=== PATIENT | female | born 1940 | race Caucasian/White ===

== ENCOUNTER 2020-09-07 16:00 | Inpatient (IN) | payer MEDICARE, BC ==
[2020-09-07 17:08] LABS: #Eosinphils 0.2 10x3/uL (0.0-0.5); #Neutrophils 6.4 10x3/uL (1.5-8.4); %Basophils 0.5 % (0.0-2.0); %Eosinophils 1.8 % (0.0-6.0); %Lymphocytes 11.6 % (18.0-47.0); %Monocytes 11.5 % (0.0-10.0); %Neutrophils 74.4 % (40.0-75.0); Hemoglobin 11.4 g/dL (12.0-15.5); Mean Corpuscular HGB CONC 31.6 g/dL (32.0-36.0); Mean Corpuscular Hemoglobin 30.7 pg (27.0-33.0); Mean Corpuscular Volume 97.3 fl (81.6-98.3); Mean Platelet Volume 10.3 fl (7.4-10.4); Platelet Count 241 10x3/uL (150-450); RBC Distribution Width 15.3 % (11.5-14.5); Red Blood Cell (RBC) Count 3.71 10x6/uL (3.90-5.03); White Blood Cell (WBC) Count 8.5 10x3/uL (3.5-10.5)
[2020-09-07 17:32] LABS: ALT (SGPT) 8 U/L (8-55); AST (SGOT) 17 U/L (5-34); Albumin 3.6 g/dL (3.4-4.8); Alkaline Phosphatase 105 U/L (40-110); Anion Gap 13 mmol/L (10-20); BUN (Urea Nitrogen) 36 mg/dL (9.8-20.1); Bilirubin, Total 0.3 mg/dL (0.2-1.2); Calc. Creatinine Clearance 0 mL/min (70-130); Calcium 9.3 mg/dL (7.8-10.44); Carbon Dioxide 30 mmol/L (23-31); Chloride 103 mmol/L (98-107); Globulin 3.4 g/dL (2.4-3.5); Glucose 95 mg/dL (83-110); Magnesium 2.5 mg/dL (1.6-2.6); Potassium 4.6 mmol/L (3.5-5.1); Sodium 141 mmol/L (136-145)
[2020-09-07 17:56] LABS: CKMB 3.4 ng/mL (0-6.6)
[2020-09-07] MEDS ORDERED: Furosemide 40 MG/4 ML VIAL ONE (18:07)
[2020-09-07] MEDS ORDERED: Ondansetron ODT 4 MG TAB PO PRN (18:32)
[2020-09-07] MEDS ORDERED: Acetaminophen 325 MG TAB PO PRN (18:32)
[2020-09-07] MEDS: Atenolol 25 MG TAB PO SCH (22:00)
[2020-09-08 05:11] LABS: #Basophils 0.1 10x3/uL (0.0-0.2); #Eosinphils 0.2 10x3/uL (0.0-0.5); #Monocytes 0.9 10x3/uL (0.0-1.1); #Neutrophils 7.4 10x3/uL (1.5-8.4); %Basophils 0.5 % (0.0-2.0); %Eosinophils 2.4 % (0.0-6.0); %Monocytes 9.1 % (0.0-10.0); %Neutrophils 78.8 % (40.0-75.0); Hemoglobin 12.1 g/dL (12.0-15.5); Mean Corpuscular HGB CONC 31.5 g/dL (32.0-36.0); Mean Corpuscular Hemoglobin 30.4 pg (27.0-33.0); Mean Corpuscular Volume 96.5 fl (81.6-98.3); Platelet Count 238 10x3/uL (150-450); Red Blood Cell (RBC) Count 3.98 10x6/uL (3.90-5.03); White Blood Cell (WBC) Count 9.4 10x3/uL (3.5-10.5)
[2020-09-08 05:23] LABS: Anion Gap 15 mmol/L (10-20); BUN (Urea Nitrogen) 31 mg/dL (9.8-20.1); Calc. Creatinine Clearance 25 mL/min (70-130); Calcium 9.2 mg/dL (7.8-10.44); Carbon Dioxide 28 mmol/L (23-31); Chloride 102 mmol/L (98-107); Glucose 95 mg/dL (83-110); Potassium 4.3 mmol/L (3.5-5.1); Sodium 141 mmol/L (136-145)
[2020-09-08] MEDS: Furosemide 40 MG/4 ML VIAL SLOW IVP SCH ×2 (05:32→14:48)
[2020-09-08 07:17] VITALS: BMI 16.5
[2020-09-08] MEDS: Enoxaparin Sodium 30 MG/0.3 ML SYRINGE SC SCH (08:14)
[2020-09-08] MEDS: Lisinopril 10 MG TAB PO SCH (08:14)
[2020-09-08] MEDS: Atenolol 25 MG TAB PO SCH ×2 (08:14→22:00)
[2020-09-08] MEDS: Aspirin 81 mg Enteric Coated Tablet PO SCH (08:15)
[2020-09-08] MEDS: traMADol HCl 50 MG TAB PO PRN (22:17)
[2020-09-09 04:54] LABS: #Basophils 0.1 10x3/uL (0.0-0.2); #Eosinphils 0.3 10x3/uL (0.0-0.5); #Monocytes 0.9 10x3/uL (0.0-1.1); #Neutrophils 5.8 10x3/uL (1.5-8.4); %Basophils 0.6 % (0.0-2.0); %Eosinophils 3.2 % (0.0-6.0); %Lymphocytes 14.5 % (18.0-47.0); %Monocytes 10.6 % (0.0-10.0); %Neutrophils 70.9 % (40.0-75.0); Hemoglobin 12.3 g/dL (12.0-15.5); Mean Corpuscular HGB CONC 31.2 g/dL (32.0-36.0); Mean Corpuscular Hemoglobin 30.2 pg (27.0-33.0); Mean Corpuscular Volume 96.8 fl (81.6-98.3); Mean Platelet Volume 10.1 fl (7.4-10.4); Platelet Count 226 10x3/uL (150-450); RBC Distribution Width 14.8 % (11.5-14.5); Red Blood Cell (RBC) Count 4.07 10x6/uL (3.90-5.03); White Blood Cell (WBC) Count 8.2 10x3/uL (3.5-10.5)
[2020-09-09 05:11] LABS: ALT (SGPT) 9 U/L (8-55); AST (SGOT) 15 U/L (5-34); Albumin 3.2 g/dL (3.4-4.8); Alkaline Phosphatase 96 U/L (40-110); Anion Gap 14 mmol/L (10-20); BUN (Urea Nitrogen) 32 mg/dL (9.8-20.1); Bilirubin, Total 0.4 mg/dL (0.2-1.2); Calc. Creatinine Clearance 24 mL/min (70-130); Carbon Dioxide 29 mmol/L (23-31); Chloride 102 mmol/L (98-107); Globulin 3.4 g/dL (2.4-3.5); Glucose 96 mg/dL (83-110); Magnesium 2.4 mg/dL (1.6-2.6); Potassium 3.9 mmol/L (3.5-5.1); Protein, Total 6.6 g/dL (5.8-8.1); Sodium 141 mmol/L (136-145)
[2020-09-09] MEDS: Furosemide 40 MG/4 ML VIAL SLOW IVP SCH ×2 (06:19→13:55)
[2020-09-09] MEDS: Atenolol 25 MG TAB PO SCH ×2 (08:19→21:42)
[2020-09-09] MEDS: Lisinopril 10 MG TAB PO SCH (08:20)
[2020-09-09] MEDS: Enoxaparin Sodium 30 MG/0.3 ML SYRINGE SC SCH (08:20)
[2020-09-09] MEDS: Aspirin 81 mg Enteric Coated Tablet PO SCH (08:20)
[2020-09-09] MEDS ORDERED: Communication Order-Pharmacy FS SCH (19:45)
[2020-09-09] MEDS: traMADol HCl 50 MG TAB PO PRN (22:06)
[2020-09-10] MEDS: Furosemide 40 MG/4 ML VIAL SLOW IVP SCH ×2 (05:27→13:31)
[2020-09-10 05:51] LABS: #Eosinphils 0.3 10x3/uL (0.0-0.5); #Monocytes 0.8 10x3/uL (0.0-1.1); #Neutrophils 5.3 10x3/uL (1.5-8.4); %Basophils 0.5 % (0.0-2.0); %Eosinophils 3.3 % (0.0-6.0); %Lymphocytes 14.3 % (18.0-47.0); %Monocytes 11.2 % (0.0-10.0); %Neutrophils 70.4 % (40.0-75.0); Mean Corpuscular HGB CONC 31.7 g/dL (32.0-36.0); Mean Corpuscular Hemoglobin 30.9 pg (27.0-33.0); Mean Corpuscular Volume 97.4 fl (81.6-98.3); Mean Platelet Volume 10.1 fl (7.4-10.4); Platelet Count 244 10x3/uL (150-450); RBC Distribution Width 14.8 % (11.5-14.5); Red Blood Cell (RBC) Count 4.21 10x6/uL (3.90-5.03); White Blood Cell (WBC) Count 7.5 10x3/uL (3.5-10.5)
[2020-09-10 05:53] LABS: ALT (SGPT) 9 U/L (8-55); AST (SGOT) 18 U/L (5-34); Albumin 3.4 g/dL (3.4-4.8); Alkaline Phosphatase 97 U/L (40-110); Anion Gap 11 mmol/L (10-20); BUN (Urea Nitrogen) 30 mg/dL (9.8-20.1); Bilirubin, Total 0.3 mg/dL (0.2-1.2); Calc. Creatinine Clearance 27 mL/min (70-130); Calcium 9.2 mg/dL (7.8-10.44); Carbon Dioxide 34 mmol/L (23-31); Chloride 100 mmol/L (98-107); Globulin 3.5 g/dL (2.4-3.5); Glucose 88 mg/dL (83-110); Magnesium 2.5 mg/dL (1.6-2.6); Potassium 3.8 mmol/L (3.5-5.1); Protein, Total 6.9 g/dL (5.8-8.1); Sodium 141 mmol/L (136-145)
[2020-09-10] MEDS: Aspirin 81 mg Enteric Coated Tablet PO SCH (08:57)
[2020-09-10] MEDS: Lisinopril 10 MG TAB PO SCH (08:57)
[2020-09-10] MEDS: Atenolol 25 MG TAB PO SCH ×2 (08:57→20:56)
[2020-09-10] MEDS ORDERED: Nitroglycerin 50 MG/250 ML BOT 0 ML ONE (12:36)
[2020-09-10] MEDS ORDERED: Heparin 10,000 UNITS/ 10 ML VIAL ONE (12:37)
[2020-09-10] MEDS ORDERED: Adenosine 6 MG/2 ML VIAL ONE (12:37)
[2020-09-10] MEDS ORDERED: Verapamil 5 MG/2 ML VIAL ONE (12:37)
[2020-09-10] MEDS ORDERED: Bivalirudin 250 MG VIAL ONE (12:38)
[2020-09-10] MEDS ORDERED: Lidocaine 1% (PF) 30 ML VIAL ONE (12:39)
[2020-09-10] MEDS ORDERED: Midazolam HCl 2 mg/2 ml Vial ONE (12:42)
[2020-09-10] MEDS ORDERED: Fentanyl 100 MCG/2 ML VIAL ONE (12:42)
[2020-09-11 05:15] LABS: #Eosinphils 0.2 10x3/uL (0.0-0.5); #Monocytes 0.9 10x3/uL (0.0-1.1); #Neutrophils 5.7 10x3/uL (1.5-8.4); %Basophils 0.5 % (0.0-2.0); %Eosinophils 2.2 % (0.0-6.0); %Lymphocytes 13.6 % (18.0-47.0); %Monocytes 11.6 % (0.0-10.0); %Neutrophils 71.8 % (40.0-75.0); Hemoglobin 11.2 g/dL (12.0-15.5); Mean Corpuscular HGB CONC 31.4 g/dL (32.0-36.0); Mean Corpuscular Hemoglobin 30.4 pg (27.0-33.0); Mean Corpuscular Volume 96.7 fl (81.6-98.3); Platelet Count 219 10x3/uL (150-450); RBC Distribution Width 14.7 % (11.5-14.5); Red Blood Cell (RBC) Count 3.69 10x6/uL (3.90-5.03); White Blood Cell (WBC) Count 7.9 10x3/uL (3.5-10.5)
[2020-09-11 05:19] LABS: Anion Gap 11 mmol/L (10-20); BUN (Urea Nitrogen) 28 mg/dL (9.8-20.1); Calc. Creatinine Clearance 31 mL/min (70-130); Calcium 8.7 mg/dL (7.8-10.44); Carbon Dioxide 29 mmol/L (23-31); Chloride 102 mmol/L (98-107); Glucose 75 mg/dL (83-110); Magnesium 2.4 mg/dL (1.6-2.6); Potassium 4.1 mmol/L (3.5-5.1); Sodium 138 mmol/L (136-145)
[2020-09-11] MEDS: Furosemide 40 MG/4 ML VIAL SLOW IVP SCH ×2 (05:29→14:09)
[2020-09-11] MEDS: Lisinopril 10 MG TAB PO SCH (08:09)
[2020-09-11] MEDS: Atenolol 25 MG TAB PO SCH ×2 (08:10→21:27)
[2020-09-11] MEDS: Aspirin 81 mg Enteric Coated Tablet PO SCH (08:47)
[2020-09-11] MEDS ORDERED: traMADol HCl 50 MG TAB ONE (21:22)
[2020-09-12] MEDS: traMADol HCl 50 MG TAB PO PRN (03:06)
[2020-09-12] MEDS: Atenolol 25 MG TAB PO SCH (08:43)
[2020-09-12] MEDS: Aspirin 81 mg Enteric Coated Tablet PO SCH (08:43)
[2020-09-12] MEDS: Furosemide 40 MG TAB PO SCH ×2 (08:44→14:04)
[2020-09-12] MEDS: Lisinopril 10 MG TAB PO SCH (08:44)
[2020-09-12 12:33] VITALS: BP 115/65; TEMP 97.7
== END 2020-09-12 14:28 | DRG 286 ==
LOC: CSHERS 16:00 → CSHTELE 19:35
PROVIDERS: ADMIT Internal Medicine; ATTEND Internal Medicine
PROC: 4A023N7 Measurement of Cardiac Sampling and Pressure, Left Heart, Percutaneous Approach (ICD-10-PCS; principal; 2020-09-10)
PROC: B2111ZZ Fluoroscopy of Multiple Coronary Arteries using Low Osmolar Contrast (ICD-10-PCS; 2020-09-10)
PROC: B2161ZZ Fluoroscopy of Right and Left Heart using Low Osmolar Contrast (ICD-10-PCS; 2020-09-10)
DX: I13.0 Hypertensive heart and chronic kidney disease with heart failure and stage 1 through stage 4 chronic kidney disease, or unspecified chronic kidney disease (principal); J96.01 Acute respiratory failure with hypoxia; I50.43 Acute on chronic combined systolic (congestive) and diastolic (congestive) heart failure; Z20.822 Contact with and (suspected) exposure to COVID-19; I35.0 Nonrheumatic aortic (valve) stenosis; I42.9 Cardiomyopathy, unspecified; N18.30 Chronic kidney disease, stage 3 unspecified; I25.10 Atherosclerotic heart disease of native coronary artery without angina pectoris; E78.5 Hyperlipidemia, unspecified; I73.9 Peripheral vascular disease, unspecified; K86.89 Other specified diseases of pancreas; R10.9 Unspecified abdominal pain; Z79.82 Long term (current) use of aspirin; Z79.891 Long term (current) use of opiate analgesic; Z79.899 Other long term (current) drug therapy; Z95.1 Presence of aortocoronary bypass graft; Z85.3 Personal history of malignant neoplasm of breast; Z90.49 Acquired absence of other specified parts of digestive tract; Z98.62 Peripheral vascular angioplasty status; Z82.49 Family history of ischemic heart disease and other diseases of the circulatory system; M19.90 Unspecified osteoarthritis, unspecified site; R93.89 Abnormal findings on diagnostic imaging of other specified body structures; R63.4 Abnormal weight loss; K76.89 Other specified diseases of liver; N28.1 Cyst of kidney, acquired
CPT/HCPCS: 36415; 36416; 71045; 74183; 74240; 74250; 75605; 80048; 80053; 82378; 82553; 83735; 83880; 84484; 85025; 86301; 93005; 93459; 94760; 96374; 99152; 99153; C1760; J0153; J0583; J1644; J1650; J1940; J2001; J2250; J3010

== ENCOUNTER 2020-09-17 20:01 | Inpatient (IN) | payer MEDICARE, BC ==
[2020-09-17 20:25] LABS: #Eosinphils 0.2 10x3/uL (0.0-0.5); #Monocytes 0.9 10x3/uL (0.0-1.1); #Neutrophils 5.7 10x3/uL (1.5-8.4); %Basophils 0.5 % (0.0-2.0); %Eosinophils 2.5 % (0.0-6.0); %Lymphocytes 10.8 % (18.0-47.0); %Monocytes 11.9 % (0.0-10.0); Hemoglobin 11.1 g/dL (12.0-15.5); Mean Corpuscular HGB CONC 32.3 g/dL (32.0-36.0); Mean Corpuscular Hemoglobin 30.3 pg (27.0-33.0); Mean Platelet Volume 10.2 fl (7.4-10.4); Platelet Count 242 10x3/uL (150-450); Red Blood Cell (RBC) Count 3.66 10x6/uL (3.90-5.03); White Blood Cell (WBC) Count 7.8 10x3/uL (3.5-10.5)
[2020-09-17 20:41] LABS: ALT (SGPT) 9 U/L (8-55); AST (SGOT) 19 U/L (5-34); Albumin 3.3 g/dL (3.4-4.8); Alkaline Phosphatase 106 U/L (40-110); Anion Gap 16 mmol/L (10-20); BUN (Urea Nitrogen) 27 mg/dL (9.8-20.1); Bilirubin, Total 0.2 mg/dL (0.2-1.2); Calc. Creatinine Clearance 0 mL/min (70-130); Calcium 8.6 mg/dL (7.8-10.44); Carbon Dioxide 26 mmol/L (23-31); Chloride 102 mmol/L (98-107); Glucose 115 mg/dL (83-110); Potassium 4.5 mmol/L (3.5-5.1); Protein, Total 6.3 g/dL (5.8-8.1); Sodium 139 mmol/L (136-145)
[2020-09-17] MEDS ORDERED: Furosemide 40 MG/4 ML VIAL ONE (21:38)
[2020-09-17] MEDS ORDERED: hydrALAZINE 10 MG TAB PO SCH (23:30)
[2020-09-17 23:54] LABS: Troponin I 0.121 ng/mL (< 0.028)
[2020-09-18 05:49] LABS: #Eosinphils 0.2 10x3/uL (0.0-0.5); #Monocytes 0.8 10x3/uL (0.0-1.1); #Neutrophils 5.3 10x3/uL (1.5-8.4); %Basophils 0.3 % (0.0-2.0); %Eosinophils 2.8 % (0.0-6.0); %Lymphocytes 11.1 % (18.0-47.0); %Monocytes 11.4 % (0.0-10.0); %Neutrophils 74.1 % (40.0-75.0); Hemoglobin 11.1 g/dL (12.0-15.5); Mean Corpuscular HGB CONC 32.6 g/dL (32.0-36.0); Mean Corpuscular Hemoglobin 30.5 pg (27.0-33.0); Mean Corpuscular Volume 93.7 fl (81.6-98.3); Mean Platelet Volume 9.8 fl (7.4-10.4); Platelet Count 217 10x3/uL (150-450); RBC Distribution Width 14.8 % (11.5-14.5); Red Blood Cell (RBC) Count 3.64 10x6/uL (3.90-5.03); White Blood Cell (WBC) Count 7.2 10x3/uL (3.5-10.5)
[2020-09-18 05:55] LABS: Anion Gap 14 mmol/L (10-20); BUN (Urea Nitrogen) 26 mg/dL (9.8-20.1); Calc. Creatinine Clearance 31 mL/min (70-130); Calcium 9.1 mg/dL (7.8-10.44); Carbon Dioxide 28 mmol/L (23-31); Chloride 102 mmol/L (98-107); Glucose 85 mg/dL (83-110); Potassium 4.3 mmol/L (3.5-5.1); Sodium 140 mmol/L (136-145)
[2020-09-18 05:57] LABS: Troponin I 0.113 ng/mL (< 0.028)
[2020-09-18] MEDS: traMADol HCl 50 MG TAB PO PRN ×2 (06:01→20:27)
[2020-09-18] MEDS: Furosemide 40 MG/4 ML VIAL SLOW IVP SCH ×2 (06:57→14:57)
[2020-09-18] MEDS: Enoxaparin Sodium 30 MG/0.3 ML SYRINGE SC SCH (10:34)
[2020-09-18] MEDS: Aspirin 325 MG TAB PO SCH (10:35)
[2020-09-18] MEDS: DULoxetine 30 MG CAP PO SCH (10:35)
[2020-09-18] MEDS: Potassium Chloride 10 MEQ TAB PO SCH (10:35)
[2020-09-18] MEDS: Atenolol 25 MG TAB PO SCH ×2 (10:35→20:27)
[2020-09-18] MEDS: hydrALAZINE 25 MG TAB PO SCH ×2 (10:36→20:27)
[2020-09-18] MEDS: Lisinopril 10 MG TAB PO SCH (10:37)
[2020-09-18 14:03] VITALS: BMI 18.1
[2020-09-18 17:49] LABS: SARS-CoV-2 PCR by NAA Not Detected (NotDetected)
[2020-09-18] MEDS: Melatonin 3 MG TAB PO PRN (20:27)
[2020-09-19 05:11] LABS: #Eosinphils 0.3 10x3/uL (0.0-0.5); #Neutrophils 4.3 10x3/uL (1.5-8.4); %Basophils 0.6 % (0.0-2.0); %Lymphocytes 15.4 % (18.0-47.0); %Monocytes 14.6 % (0.0-10.0); Hemoglobin 11.1 g/dL (12.0-15.5); Mean Corpuscular HGB CONC 32.1 g/dL (32.0-36.0); Mean Corpuscular Hemoglobin 30.4 pg (27.0-33.0); Mean Corpuscular Volume 94.8 fl (81.6-98.3); Mean Platelet Volume 10.3 fl (7.4-10.4); Platelet Count 238 10x3/uL (150-450); RBC Distribution Width 14.9 % (11.5-14.5); Red Blood Cell (RBC) Count 3.65 10x6/uL (3.90-5.03); White Blood Cell (WBC) Count 6.8 10x3/uL (3.5-10.5)
[2020-09-19 05:30] LABS: Anion Gap 14 mmol/L (10-20); BUN (Urea Nitrogen) 26 mg/dL (9.8-20.1); Calc. Creatinine Clearance 30 mL/min (70-130); Calcium 9.1 mg/dL (7.8-10.44); Carbon Dioxide 28 mmol/L (23-31); Chloride 102 mmol/L (98-107); Glucose 84 mg/dL (83-110); Potassium 4.4 mmol/L (3.5-5.1); Sodium 140 mmol/L (136-145)
[2020-09-19] MEDS: Furosemide 40 MG/4 ML VIAL SLOW IVP SCH ×2 (06:39→17:06)
[2020-09-19] MEDS: Potassium Chloride 10 MEQ TAB PO SCH (08:41)
[2020-09-19] MEDS: DULoxetine 30 MG CAP PO SCH (08:41)
[2020-09-19] MEDS: Atenolol 25 MG TAB PO SCH ×2 (08:42→21:50)
[2020-09-19] MEDS: Aspirin 325 MG TAB PO SCH (08:42)
[2020-09-19] MEDS: Enoxaparin Sodium 30 MG/0.3 ML SYRINGE SC SCH (08:43)
[2020-09-19] MEDS: Lisinopril 10 MG TAB PO SCH (08:44)
[2020-09-19] MEDS: hydrALAZINE 25 MG TAB PO SCH (08:45)
[2020-09-19] MEDS: traMADol HCl 50 MG TAB PO PRN (20:42)
[2020-09-19] MEDS: Melatonin 3 MG TAB PO PRN (21:42)
[2020-09-20] MEDS: Melatonin 3 MG TAB PO PRN (03:59)
[2020-09-20 05:29] LABS: Anion Gap 13 mmol/L (10-20); BUN (Urea Nitrogen) 28 mg/dL (9.8-20.1); Calc. Creatinine Clearance 0 mL/min (70-130); Calcium 9.1 mg/dL (7.8-10.44); Carbon Dioxide 28 mmol/L (23-31); Chloride 101 mmol/L (98-107); Glucose 92 mg/dL (83-110); Potassium 4.2 mmol/L (3.5-5.1); Sodium 138 mmol/L (136-145)
[2020-09-20] MEDS: Furosemide 40 MG/4 ML VIAL SLOW IVP SCH ×2 (06:38→14:57)
[2020-09-20] MEDS: traMADol HCl 50 MG TAB PO PRN ×2 (06:53→22:57)
[2020-09-20] MEDS: Atenolol 25 MG TAB PO SCH ×2 (08:05→23:11)
[2020-09-20] MEDS: Aspirin 325 MG TAB PO SCH (08:05)
[2020-09-20] MEDS: DULoxetine 30 MG CAP PO SCH (08:06)
[2020-09-20] MEDS: Potassium Chloride 10 MEQ TAB PO SCH (08:06)
[2020-09-20] MEDS: Enoxaparin Sodium 30 MG/0.3 ML SYRINGE SC SCH (08:11)
[2020-09-20] MEDS ORDERED: diphenhydrAMINE 25 MG CAP PO PRN (15:56)
[2020-09-21 06:12] LABS: Anion Gap 13 mmol/L (10-20); BUN (Urea Nitrogen) 28 mg/dL (9.8-20.1); Calc. Creatinine Clearance 26 mL/min (70-130); Calcium 8.9 mg/dL (7.8-10.44); Carbon Dioxide 27 mmol/L (23-31); Chloride 101 mmol/L (98-107); Glucose 91 mg/dL (83-110); Potassium 4.2 mmol/L (3.5-5.1); Sodium 137 mmol/L (136-145)
[2020-09-21] MEDS: traMADol HCl 50 MG TAB PO PRN (06:26)
[2020-09-21] MEDS: Furosemide 40 MG/4 ML VIAL SLOW IVP SCH ×2 (06:51→14:23)
[2020-09-21] MEDS: Potassium Chloride 10 MEQ TAB PO SCH (10:02)
[2020-09-21] MEDS: Enoxaparin Sodium 30 MG/0.3 ML SYRINGE SC SCH (10:03)
[2020-09-21] MEDS: Atenolol 25 MG TAB PO SCH (10:03)
[2020-09-21] MEDS: DULoxetine 30 MG CAP PO SCH (10:03)
[2020-09-21] MEDS: Aspirin 325 MG TAB PO SCH (10:03)
[2020-09-21 15:23] VITALS: BP 96/52; TEMP 98.2
== END 2020-09-21 15:42 | disposition home or self-care (01) | DRG 306 ==
LOC: CSHERS 20:01 → CSHTELE 22:41 → UNDOADMOB 23:24 → CSHTELE 23:24 → OBSVTOIN 23:25 → INTOOBSV 23:25
PROVIDERS: ADMIT Family Medicine; ATTEND Hospitalist
DX: I35.0 Nonrheumatic aortic (valve) stenosis (principal); I50.43 Acute on chronic combined systolic (congestive) and diastolic (congestive) heart failure; J96.01 Acute respiratory failure with hypoxia; I13.0 Hypertensive heart and chronic kidney disease with heart failure and stage 1 through stage 4 chronic kidney disease, or unspecified chronic kidney disease; N18.30 Chronic kidney disease, stage 3 unspecified; I25.10 Atherosclerotic heart disease of native coronary artery without angina pectoris; Z95.1 Presence of aortocoronary bypass graft; I73.9 Peripheral vascular disease, unspecified; Z85.3 Personal history of malignant neoplasm of breast; I45.10 Unspecified right bundle-branch block; Z66 Do not resuscitate; D64.9 Anemia, unspecified; Z20.822 Contact with and (suspected) exposure to COVID-19; M19.90 Unspecified osteoarthritis, unspecified site; E78.5 Hyperlipidemia, unspecified
CPT/HCPCS: 36415; 71045; 80048; 80053; 82553; 83735; 83880; 84443; 84484; 85025; 87635; 93005; 93010; 94760; 96374; 97139; J1650; J1940; Q0163; U0003; U0005

== ENCOUNTER 2021-03-19 10:30 | Inpatient (IN) | payer MEDICARE, BC ==
[2021-03-19 12:35] LABS: #Monocytes 0.9 10x3/uL (0.0-1.1); #Neutrophils 10.4 10x3/uL (1.5-8.4); %Basophils 0.2 % (0.0-2.0); %Eosinophils 0.2 % (0.0-6.0); %Lymphocytes 5.8 % (18.0-47.0); %Monocytes 7.7 % (0.0-10.0); %Neutrophils 85.6 % (40.0-75.0); ALT (SGPT) 8 U/L (8-55); AST (SGOT) 19 U/L (5-34); Albumin 3.6 g/dL (3.4-4.8); Alkaline Phosphatase 106 U/L (40-110); Anion Gap 17 mmol/L (10-20); BUN (Urea Nitrogen) 30 mg/dL (9.8-20.1); Bilirubin, Total 0.4 mg/dL (0.2-1.2); CK (CPK) 66 U/L (29-168); Calc. Creatinine Clearance 0 mL/min (70-130); Calcium 9.8 mg/dL (7.8-10.44); Carbon Dioxide 24 mmol/L (23-31); Chloride 105 mmol/L (98-107); Globulin 3.1 g/dL (2.4-3.5); Glucose 97 mg/dL (83-110); Hemoglobin 9.7 g/dL (12.0-15.5); Mean Corpuscular HGB CONC 31.5 g/dL (32.0-36.0); Mean Corpuscular Hemoglobin 28.7 pg (27.0-33.0); Mean Corpuscular Volume 91.1 fl (81.6-98.3); Mean Platelet Volume 10.1 fl (7.4-10.4); Platelet Count 190 10x3/uL (150-450); Potassium 4.6 mmol/L (3.5-5.1); Protein, Total 6.7 g/dL (5.8-8.1); RBC Distribution Width 20.1 % (11.5-14.5); Red Blood Cell (RBC) Count 3.38 10x6/uL (3.90-5.03); Sodium 141 mmol/L (136-145); White Blood Cell (WBC) Count 12.2 10x3/uL (3.5-10.5)
[2021-03-19 14:51] LABS: SARS-CoV-2 NAA Rapid Test Not Detected (NotDetected)
[2021-03-19] MEDS ORDERED: Ondansetron PF 4 MG/2 ML Vial IVP PRN (14:59)
[2021-03-19] MEDS ORDERED: Ondansetron ODT 4 MG TAB PO PRN (14:59)
[2021-03-19] MEDS ORDERED: Senokot S 8.6-50 MG TAB PO PRN (14:59)
[2021-03-19] MEDS ORDERED: Sodium Chloride 0.9% 1,000 ML IV SCH (15:00)
[2021-03-19 15:32] LABS: PTT 22.1 sec (22.0-33.0); Prothrombin Time 11.4 sec (9.5-12.1)
[2021-03-19 15:55] LABS: CKMB 2.7 ng/mL (0-6.6)
[2021-03-19] MEDS ORDERED: Acetaminophen 500 MG TAB ONE (16:13)
[2021-03-19 18:01] LABS: Hemoglobin 9.3 g/dL (12.0-15.5)
[2021-03-19 18:19] LABS: Troponin I 0.082 ng/mL (< 0.028)
[2021-03-19] MEDS: Acetaminophen 325 MG TAB PO SCH ×2 (18:29→23:40)
[2021-03-19 18:45] VITALS: BMI 16.5
[2021-03-19] MEDS ORDERED: Morphine 4 MG/ML VIAL SLOW IVP SCH (21:45)
[2021-03-20] MEDS: Acetaminophen 325 MG TAB PO SCH ×4 (00:49→22:07)
[2021-03-20 04:46] LABS: Bilirubin Neg (Negative); Blood, Urine Negative (Negative); Clarity Clear (Clear); Glucose, Urine (Dipstick) Normal (Negative); Ketone, Urine Negative (Negative); Leukocyte Negative (Negative); Nitrite Negative (Negative); Protein, Urine (Dipstick) Negative (Neg-Trace); Urobilinogen Normal mg/dL (Less than 2)
[2021-03-20 04:57] LABS: Bacteria/HPF None Seen HPF (None Seen); RBC/HPF 0-3 HPF (0-3); Squamous Epithelial None Seen HPF (0-3); WBC/HPF None Seen HPF (0-3)
[2021-03-20 05:08] LABS: Anion Gap 16 mmol/L (10-20); BUN (Urea Nitrogen) 28 mg/dL (9.8-20.1); Calc. Creatinine Clearance 22 mL/min (70-130); Carbon Dioxide 22 mmol/L (23-31); Chloride 105 mmol/L (98-107); Glucose 94 mg/dL (83-110); Potassium 4.1 mmol/L (3.5-5.1); Sodium 139 mmol/L (136-145)
[2021-03-20 05:09] LABS: #Eosinphils 0.1 10x3/uL (0.0-0.5); #Neutrophils 6.9 10x3/uL (1.5-8.4); %Basophils 0.4 % (0.0-2.0); %Eosinophils 1.2 % (0.0-6.0); %Lymphocytes 10.8 % (18.0-47.0); %Monocytes 10.7 % (0.0-10.0); %Neutrophils 76.6 % (40.0-75.0); Hemoglobin 8.5 g/dL (12.0-15.5); Mean Corpuscular HGB CONC 31.8 g/dL (32.0-36.0); Mean Corpuscular Hemoglobin 28.6 pg (27.0-33.0); Mean Corpuscular Volume 89.9 fl (81.6-98.3); Mean Platelet Volume 10.3 fl (7.4-10.4); Platelet Count 171 10x3/uL (150-450); Red Blood Cell (RBC) Count 2.97 10x6/uL (3.90-5.03)
[2021-03-20] MEDS: Famotidine 20 MG TAB PO SCH (11:30)
[2021-03-20] MEDS: Famotidine/PF 20 mg/2ml Vial SLOW IVP SCH (11:33)
[2021-03-20] MEDS: Polyethylene Glycol 3350 17 GM Packet PO SCH (11:33)
[2021-03-20] MEDS ORDERED: Amoxicillin/Potassium Clav 875 MG TAB PO SCH (12:30)
[2021-03-20] MEDS ORDERED: Doxycycline 100 MG CAP PO SCH (12:30)
[2021-03-20] MEDS: Amoxicillin/Potassium Clav 875 MG TAB PO SCH (22:05)
[2021-03-20] MEDS: Atenolol 25 MG TAB PO SCH (22:05)
[2021-03-20] MEDS: Doxycycline 100 MG CAP PO SCH (22:05)
[2021-03-21] MEDS ORDERED: Zolpidem Tartrate 5 MG TAB PO SCH (00:15)
[2021-03-21] MEDS: Acetaminophen 325 MG TAB PO SCH ×3 (06:08→22:24)
[2021-03-21 08:26] LABS: #Basophils 0.1 10x3/uL (0.0-0.2); #Eosinphils 0.1 10x3/uL (0.0-0.5); #Monocytes 1.1 10x3/uL (0.0-1.1); #Neutrophils 9.3 10x3/uL (1.5-8.4); %Basophils 0.6 % (0.0-2.0); %Monocytes 9.4 % (0.0-10.0); %Neutrophils 81.6 % (40.0-75.0); Hemoglobin 9.5 g/dL (12.0-15.5); Mean Corpuscular Hemoglobin 28.5 pg (27.0-33.0); Mean Corpuscular Volume 89.2 fl (81.6-98.3); Mean Platelet Volume 10.5 fl (7.4-10.4); Platelet Count 200 10x3/uL (150-450); RBC Distribution Width 19.6 % (11.5-14.5); Red Blood Cell (RBC) Count 3.33 10x6/uL (3.90-5.03); White Blood Cell (WBC) Count 11.4 10x3/uL (3.5-10.5)
[2021-03-21 08:47] LABS: ALT (SGPT) 7 U/L (8-55); AST (SGOT) 20 U/L (5-34); Albumin 3.4 g/dL (3.4-4.8); Alkaline Phosphatase 95 U/L (40-110); Anion Gap 16 mmol/L (10-20); BUN (Urea Nitrogen) 24 mg/dL (9.8-20.1); Bilirubin, Total 0.4 mg/dL (0.2-1.2); Calc. Creatinine Clearance 24 mL/min (70-130); Calcium 9.4 mg/dL (7.8-10.44); Carbon Dioxide 22 mmol/L (23-31); Chloride 104 mmol/L (98-107); Globulin 2.8 g/dL (2.4-3.5); Glucose 103 mg/dL (83-110); Iron 25 ug/dL (50-170); Iron Binding Capacity, Total 335 mcg/dL (265-497); Magnesium 2.3 mg/dL (1.6-2.6); Phosphorus 2.3 mg/dL (2.3-4.7); Potassium 4.2 mmol/L (3.5-5.1); Protein, Total 6.2 g/dL (5.8-8.1); Sodium 138 mmol/L (136-145)
[2021-03-21 08:48] LABS: Iron 25 ug/dL (50-170); Iron Binding Capacity, Total 320 mcg/dL (265-497)
[2021-03-21] MEDS ORDERED: FLU VACC QS2021-22(65YR UP)/PF 240 MCG/0.7 ML SYRINGE IM ONE (09:00)
[2021-03-21] MEDS ORDERED: Ferrous Sulfate 325 MG TAB PO SCH (10:00)
[2021-03-21 10:52] LABS: Ferritin 84.86 ng/mL (10-291)
[2021-03-21] MEDS: Atenolol 25 MG TAB PO SCH ×2 (10:52→22:25)
[2021-03-21] MEDS: Famotidine 20 MG TAB PO SCH (10:53)
[2021-03-21] MEDS: Furosemide 40 MG TAB PO SCH ×2 (10:53→13:27)
[2021-03-21] MEDS: Doxycycline 100 MG CAP PO SCH ×2 (10:54→22:25)
[2021-03-21] MEDS: Clopidogrel Bisulfate 75 MG TAB PO SCH (10:54)
[2021-03-21] MEDS: Amoxicillin/Potassium Clav 875 MG TAB PO SCH ×2 (10:54→22:25)
[2021-03-21] MEDS: Aspirin 81 mg Enteric Coated Tablet PO SCH (10:54)
[2021-03-21] MEDS: DULoxetine 30 MG CAP PO SCH (10:54)
[2021-03-21] MEDS: Famotidine/PF 20 mg/2ml Vial SLOW IVP SCH (13:03)
[2021-03-21] MEDS: Polyethylene Glycol 3350 17 GM Packet PO SCH (13:03)
[2021-03-21] MEDS ORDERED: Furosemide 20 MG/2 ML VIAL SLOW IVP SCH (19:15)
[2021-03-22] MEDS ORDERED: Melatonin 3 MG TAB PO SCH (00:45)
[2021-03-22] MEDS ORDERED: diphenhydrAMINE 12.5 MG/5 ML UDCUP PO SCH (03:15)
[2021-03-22] MEDS: Acetaminophen 325 MG TAB PO SCH ×2 (06:57→14:22)
[2021-03-22] MEDS ORDERED: Ferrous Sulfate 325 MG TAB PO SCH (08:00)
[2021-03-22] MEDS: Famotidine 20 MG TAB PO SCH (08:42)
[2021-03-22] MEDS: Clopidogrel Bisulfate 75 MG TAB PO SCH (08:43)
[2021-03-22] MEDS: Furosemide 40 MG TAB PO SCH ×2 (08:43→14:23)
[2021-03-22] MEDS: Aspirin 81 mg Enteric Coated Tablet PO SCH (08:43)
[2021-03-22] MEDS: Atenolol 25 MG TAB PO SCH (08:44)
[2021-03-22] MEDS: DULoxetine 30 MG CAP PO SCH (08:45)
[2021-03-22] MEDS: Doxycycline 100 MG CAP PO SCH (08:45)
[2021-03-22] MEDS: Amoxicillin/Potassium Clav 875 MG TAB PO SCH (08:46)
[2021-03-22] MEDS: Famotidine/PF 20 mg/2ml Vial SLOW IVP SCH (08:47)
[2021-03-22] MEDS: Polyethylene Glycol 3350 17 GM Packet PO SCH (08:47)
[2021-03-22 09:22] LABS: #Eosinphils 0.3 10x3/uL (0.0-0.5); #Monocytes 0.9 10x3/uL (0.0-1.1); #Neutrophils 8.3 10x3/uL (1.5-8.4); %Basophils 0.4 % (0.0-2.0); %Eosinophils 2.6 % (0.0-6.0); %Lymphocytes 8.3 % (18.0-47.0); %Monocytes 8.9 % (0.0-10.0); %Neutrophils 79.4 % (40.0-75.0); Hemoglobin 9.9 g/dL (12.0-15.5); Mean Corpuscular HGB CONC 31.6 g/dL (32.0-36.0); Mean Corpuscular Hemoglobin 28.6 pg (27.0-33.0); Mean Corpuscular Volume 90.5 fl (81.6-98.3); Mean Platelet Volume 10.4 fl (7.4-10.4); Platelet Count 239 10x3/uL (150-450); RBC Distribution Width 19.6 % (11.5-14.5); Red Blood Cell (RBC) Count 3.46 10x6/uL (3.90-5.03); White Blood Cell (WBC) Count 10.4 10x3/uL (3.5-10.5)
[2021-03-22 11:40] LABS: ALT (SGPT) Less than 6 U/L (8-55); AST (SGOT) 19 U/L (5-34); Albumin 3.4 g/dL (3.4-4.8); Alkaline Phosphatase 94 U/L (40-110); Anion Gap 14 mmol/L (10-20); BUN (Urea Nitrogen) 23 mg/dL (9.8-20.1); Bilirubin, Total 0.4 mg/dL (0.2-1.2); Calc. Creatinine Clearance 23 mL/min (70-130); Calcium 9.4 mg/dL (7.8-10.44); Carbon Dioxide 25 mmol/L (23-31); Chloride 104 mmol/L (98-107); Glucose 98 mg/dL (83-110); Magnesium 2.3 mg/dL (1.6-2.6); Phosphorus 2.9 mg/dL (2.3-4.7); Potassium 4.6 mmol/L (3.5-5.1); Protein, Total 6.4 g/dL (5.8-8.1); Sodium 138 mmol/L (136-145)
[2021-03-22 15:29] VITALS: BP 129/60; TEMP 99.4
== END 2021-03-22 17:45 | DRG 563 ==
LOC: CSHERS 10:30 → CSHTELE 18:23
PROVIDERS: ADMIT Internal Medicine; ATTEND Family Medicine
DX: S82.201A Unspecified fracture of shaft of right tibia, initial encounter for closed fracture (principal); N17.9 Acute kidney failure, unspecified; I13.0 Hypertensive heart and chronic kidney disease with heart failure and stage 1 through stage 4 chronic kidney disease, or unspecified chronic kidney disease; I50.32 Chronic diastolic (congestive) heart failure; S82.831A Other fracture of upper and lower end of right fibula, initial encounter for closed fracture; W06.XXXA Fall from bed, initial encounter; Y92.013 Bedroom of single-family (private) house as the place of occurrence of the external cause; R77.8 Other specified abnormalities of plasma proteins; Z20.822 Contact with and (suspected) exposure to COVID-19; R13.10 Dysphagia, unspecified; I25.10 Atherosclerotic heart disease of native coronary artery without angina pectoris; M19.90 Unspecified osteoarthritis, unspecified site; Z95.1 Presence of aortocoronary bypass graft; Z85.3 Personal history of malignant neoplasm of breast; E78.5 Hyperlipidemia, unspecified; Z90.710 Acquired absence of both cervix and uterus; Z90.49 Acquired absence of other specified parts of digestive tract; I12.9 Hypertensive chronic kidney disease with stage 1 through stage 4 chronic kidney disease, or unspecified chronic kidney disease; N18.30 Chronic kidney disease, stage 3 unspecified; Z95.4 Presence of other heart-valve replacement; Z79.82 Long term (current) use of aspirin; Z79.891 Long term (current) use of opiate analgesic; Z79.899 Other long term (current) drug therapy; S90.822A Blister (nonthermal), left foot, initial encounter; I95.1 Orthostatic hypotension; D50.9 Iron deficiency anemia, unspecified; I70.202 Unspecified atherosclerosis of native arteries of extremities, left leg; Z86.73 Personal history of transient ischemic attack (TIA), and cerebral infarction without residual deficits; S91.302A Unspecified open wound, left foot, initial encounter
CPT/HCPCS: 36415; 70450; 71045; 76770; 80048; 80053; 81001; 82274; 82550; 82553; 82607; 82728; 82746; 83540; 83550; 83735; 83880; 84100; 84484; 85025; 85610; 85730; 86850; 86900; 86901; 87070; 87081; 87205; 93005; 93923; J1940; J2270; J7050; Q0162; Q0163; U0002

== ENCOUNTER 2021-08-02 09:22 | Outpatient (CLI) | payer MEDICARE, BC | END 2021-08-02 09:23 | disposition home or self-care (01) | LOC: CSHWCC 09:22 | PROVIDERS: ATTEND Nurse Practitioner Family | DX: S81.801D Unspecified open wound, right lower leg, subsequent encounter (principal); L89.626 Pressure-induced deep tissue damage of left heel | CPT/HCPCS: 11042; 97139; G0463; 99203 ==

== ENCOUNTER 2021-09-07 10:13 | Outpatient (CLI) | payer MEDICARE, BC | END 2021-09-07 10:14 | disposition home or self-care (01) | LOC: CSHWCC 10:13 | PROVIDERS: ATTEND Nurse Practitioner Family | DX: S81.801D Unspecified open wound, right lower leg, subsequent encounter (principal) | CPT/HCPCS: 97139; G0463; 99212 ==

== ENCOUNTER 2021-09-28 09:47 | Outpatient (CLI) | payer MEDICARE, BC | END 2021-09-28 09:48 | disposition home or self-care (01) | LOC: CSHWCC 09:47 | PROVIDERS: ATTEND Nurse Practitioner Family | DX: S81.801D Unspecified open wound, right lower leg, subsequent encounter (principal) | CPT/HCPCS: 99212; G0463 ==

== ENCOUNTER 2022-01-24 20:25 | Inpatient (IN) | payer MEDICARE, BC ==
[2022-01-24 23:00] VITALS: BMI 20.1
[2022-01-24 23:25] LABS: CKMB 1.6 ng/mL (0-6.6)
[2022-01-25 03:05] LABS: CKMB 1.4 ng/mL (0-6.6)
[2022-01-25 03:12] LABS: Cardiac Risk 5.5 (Less than 4.5)
[2022-01-25] MEDS: Furosemide 40 MG/4 ML VIAL SLOW IVP SCH ×2 (06:24→16:09)
[2022-01-25] MEDS ORDERED: Acetaminophen 500 MG TAB PO PRN (08:22)
[2022-01-25] MEDS ORDERED: Furosemide 40 MG TAB PO SCH (09:00)
[2022-01-25] MEDS ORDERED: Enoxaparin Sodium 40 MG/0.4 ML SYRINGE SC SCH (09:00)
[2022-01-25] MEDS: Aspirin 81 mg Enteric Coated Tablet PO SCH (11:12)
[2022-01-25] MEDS: Potassium Chloride 10 MEQ TAB PO SCH (11:12)
[2022-01-25] MEDS: Atenolol 25 MG TAB PO SCH ×2 (11:12→21:18)
[2022-01-25] MEDS: Apixaban 2.5 MG TAB PO SCH (21:17)
[2022-01-25] MEDS: guaiFENesin 100 MG/5 ML UDCUP PO PRN (22:36)
[2022-01-26 04:52] LABS: #Eosinphils 0.2 10x3/uL (0.0-0.5); #Monocytes 0.9 10x3/uL (0.0-1.1); %Basophils 0.3 % (0.0-2.0); %Lymphocytes 12.7 % (18.0-47.0); %Monocytes 12.8 % (0.0-10.0); %Neutrophils 70.9 % (40.0-75.0); Hemoglobin 12.1 g/dL (12.0-15.5); Mean Corpuscular HGB CONC 32.4 g/dL (32.0-36.0); Mean Corpuscular Hemoglobin 31.7 pg (27.0-33.0); Mean Corpuscular Volume 97.9 fl (81.6-98.3); Mean Platelet Volume 9.9 fl (7.4-10.4); Platelet Count 215 10x3/uL (150-450); RBC Distribution Width 14.2 % (11.5-14.5); Red Blood Cell (RBC) Count 3.82 10x6/uL (3.90-5.03)
[2022-01-26 05:14] LABS: Anion Gap 12 mmol/L (10-20); BUN (Urea Nitrogen) 26 mg/dL (9.8-20.1); Calc. Creatinine Clearance 32 mL/min (70-130); Calcium 9.3 mg/dL (7.8-10.44); Carbon Dioxide 27 mmol/L (23-31); Cardiac Risk 6.1 (Less than 4.5); Chloride 102 mmol/L (98-107); Cholesterol 213 mg/dl (< 200 Desired); Estimated GFR 58; Glucose 104 mg/dL (83-110); HDL Cholesterol 35 mg/dL (>60 Neg Risk); LDL Cholesterol, Calculated 141 mg/dL; Magnesium 2.2 mg/dL (1.6-2.6); Potassium 4.1 mmol/L (3.5-5.1); Sodium 137 mmol/L (136-145); Triglycerides 183 mg/dL (Less than 150)
[2022-01-26] MEDS: Furosemide 40 MG/4 ML VIAL SLOW IVP SCH ×2 (06:02→15:22)
[2022-01-26] MEDS ORDERED: Ramipril 5 MG CAP PO SCH (09:00)
[2022-01-26] MEDS: Losartan 25 MG TAB PO SCH (10:44)
[2022-01-26] MEDS: Potassium Chloride 10 MEQ TAB PO SCH (10:45)
[2022-01-26] MEDS: Aspirin 81 mg Enteric Coated Tablet PO SCH (10:45)
[2022-01-26] MEDS: Apixaban 2.5 MG TAB PO SCH ×2 (10:45→21:34)
[2022-01-26] MEDS: Atenolol 25 MG TAB PO SCH ×2 (10:47→21:33)
[2022-01-26] MEDS: guaiFENesin 100 MG/5 ML UDCUP PO PRN (15:36)
[2022-01-27] MEDS: Furosemide 40 MG/4 ML VIAL SLOW IVP SCH (05:58)
[2022-01-27] MEDS: Aspirin 81 mg Enteric Coated Tablet PO SCH (09:59)
[2022-01-27] MEDS: Apixaban 2.5 MG TAB PO SCH (09:59)
[2022-01-27] MEDS: Atenolol 25 MG TAB PO SCH (09:59)
[2022-01-27] MEDS: Losartan 25 MG TAB PO SCH (10:00)
[2022-01-27] MEDS: Potassium Chloride 10 MEQ TAB PO SCH (10:01)
[2022-01-27 12:41] VITALS: BP 138/82; TEMP 97.4
== END 2022-01-27 17:28 | disposition home health service (06) | DRG 309 ==
LOC: CSHTELE 20:25 → OBSVTOIN 01-26 15:50
PROVIDERS: ADMIT Internal Medicine; ATTEND Internal Medicine Geriatric Medicine
DX: I48.91 Unspecified atrial fibrillation (principal); I13.0 Hypertensive heart and chronic kidney disease with heart failure and stage 1 through stage 4 chronic kidney disease, or unspecified chronic kidney disease; N18.4 Chronic kidney disease, stage 4 (severe); I50.42 Chronic combined systolic (congestive) and diastolic (congestive) heart failure; I25.10 Atherosclerotic heart disease of native coronary artery without angina pectoris; D50.9 Iron deficiency anemia, unspecified; R41.81 Age-related cognitive decline; I73.9 Peripheral vascular disease, unspecified; E78.5 Hyperlipidemia, unspecified; R53.81 Other malaise; I45.10 Unspecified right bundle-branch block; I35.0 Nonrheumatic aortic (valve) stenosis; R77.8 Other specified abnormalities of plasma proteins; L89.151 Pressure ulcer of sacral region, stage 1; Z95.1 Presence of aortocoronary bypass graft; Z95.2 Presence of prosthetic heart valve; Z98.890 Other specified postprocedural states; Z82.49 Family history of ischemic heart disease and other diseases of the circulatory system; Z88.8 Allergy status to other drugs, medicaments and biological substances; Z90.89 Acquired absence of other organs; Z90.710 Acquired absence of both cervix and uterus; Z79.82 Long term (current) use of aspirin; Z85.3 Personal history of malignant neoplasm of breast; Z79.899 Other long term (current) drug therapy
CPT/HCPCS: 36415; 70450; 70551; 71045; 80048; 80053; 80061; 81003; 82550; 82553; 83735; 84443; 84484; 85025; 93005; 93010; 93306; 94760; 95816; 95819; 95957; 96372; 96374; G0378; J1650; J1940; U0002

== ENCOUNTER 2022-02-16 10:21 | Inpatient (IN) | payer MEDICARE, BC ==
[2022-02-16 10:59] LABS: #Eosinphils 0.1 10x3/uL (0.0-0.5); #Monocytes 0.8 10x3/uL (0.0-1.1); #Neutrophils 5.3 10x3/uL (1.5-8.4); %Basophils 0.4 % (0.0-2.0); %Eosinophils 1.3 % (0.0-6.0); %Lymphocytes 12.9 % (18.0-47.0); %Monocytes 11.1 % (0.0-10.0); Mean Corpuscular HGB CONC 31.8 g/dL (32.0-36.0); Mean Corpuscular Hemoglobin 31.1 pg (27.0-33.0); Mean Corpuscular Volume 97.7 fl (81.6-98.3); Mean Platelet Volume 10.2 fl (7.4-10.4); Platelet Count 179 10x3/uL (150-450); RBC Distribution Width 14.9 % (11.5-14.5); Red Blood Cell (RBC) Count 3.86 10x6/uL (3.90-5.03); White Blood Cell (WBC) Count 7.2 10x3/uL (3.5-10.5)
[2022-02-16 11:13] LABS: ALT (SGPT) Less than 6 U/L (8-55); AST (SGOT) 12 U/L (5-34); Albumin 3.5 g/dL (3.4-4.8); Alkaline Phosphatase 115 U/L (40-110); Anion Gap 13 mmol/L (10-20); BUN (Urea Nitrogen) 26 mg/dL (9.8-20.1); Bilirubin, Total 0.8 mg/dL (0.2-1.2); Calc. Creatinine Clearance 0 mL/min (70-130); Carbon Dioxide 28 mmol/L (23-31); Chloride 104 mmol/L (98-107); Estimated GFR 45; Globulin 3.2 g/dL (2.4-3.5); Glucose 106 mg/dL (83-110); Potassium 4.4 mmol/L (3.5-5.1); Protein, Total 6.7 g/dL (5.8-8.1); Sodium 141 mmol/L (136-145)
[2022-02-16 11:31] LABS: CKMB 1.4 ng/mL (0-6.6)
[2022-02-16 11:32] LABS: SARS-CoV-2 NAA Rapid Test Not Detected (NotDetected)
[2022-02-16] MEDS ORDERED: Furosemide 40 MG/4 ML VIAL ONE (12:36)
[2022-02-16] MEDS ORDERED: Acetaminophen 650 MG Suppository PR PRN (18:39)
[2022-02-16] MEDS ORDERED: Ondansetron ODT 4 MG TAB PO PRN (18:39)
[2022-02-16] MEDS ORDERED: Acetaminophen 325 MG TAB PO PRN (18:39)
[2022-02-16] MEDS ORDERED: Ondansetron PF 4 MG/2 ML Vial IVP PRN (18:39)
[2022-02-16] MEDS ORDERED: Ramipril 5 MG CAP PO PRN (19:02)
[2022-02-16 19:54] LABS: CKMB 1.7 ng/mL (0-6.6)
[2022-02-16] MEDS ORDERED: Furosemide 40 MG/4 ML VIAL SLOW IVP SCH (20:00)
[2022-02-16] MEDS: Atenolol 25 MG TAB PO SCH (21:34)
[2022-02-17 03:18] LABS: #Eosinphils 0.2 10x3/uL (0.0-0.5); #Monocytes 1.1 10x3/uL (0.0-1.1); #Neutrophils 5.3 10x3/uL (1.5-8.4); %Basophils 0.4 % (0.0-2.0); %Lymphocytes 14.5 % (18.0-47.0); Hemoglobin 12.1 g/dL (12.0-15.5); Mean Corpuscular HGB CONC 32.1 g/dL (32.0-36.0); Mean Corpuscular Hemoglobin 31.6 pg (27.0-33.0); Mean Corpuscular Volume 98.4 fl (81.6-98.3); Mean Platelet Volume 10.3 fl (7.4-10.4); Platelet Count 179 10x3/uL (150-450); RBC Distribution Width 14.8 % (11.5-14.5); Red Blood Cell (RBC) Count 3.83 10x6/uL (3.90-5.03); White Blood Cell (WBC) Count 7.7 10x3/uL (3.5-10.5)
[2022-02-17 03:22] LABS: Anion Gap 13 mmol/L (10-20); BUN (Urea Nitrogen) 27 mg/dL (9.8-20.1); Calc. Creatinine Clearance 0 mL/min (70-130); Calcium 9.2 mg/dL (7.8-10.44); Carbon Dioxide 28 mmol/L (23-31); Chloride 104 mmol/L (98-107); Estimated GFR 46; Glucose 108 mg/dL (83-110); Magnesium 2.4 mg/dL (1.6-2.6); Phosphorus 3.9 mg/dL (2.3-4.7); Potassium 4.4 mmol/L (3.5-5.1); Sodium 141 mmol/L (136-145)
[2022-02-17] MEDS ORDERED: Furosemide 40 MG/4 ML VIAL ONE (07:04)
[2022-02-17] MEDS: Furosemide 40 MG/4 ML VIAL SLOW IVP SCH ×2 (07:31→14:18)
[2022-02-17] MEDS ORDERED: Aspirin Chewable 81 MG TAB ONE (08:46)
[2022-02-17] MEDS ORDERED: Apixaban 5 MG TAB ONE (08:47)
[2022-02-17] MEDS: Apixaban 2.5 MG TAB PO SCH ×2 (08:55→22:14)
[2022-02-17] MEDS: DULoxetine 30 MG CAP PO SCH (08:55)
[2022-02-17] MEDS: Aspirin 81 mg Enteric Coated Tablet PO SCH (08:55)
[2022-02-17] MEDS: Atenolol 25 MG TAB PO SCH ×2 (08:55→22:15)
[2022-02-17] MEDS ORDERED: Enoxaparin Sodium 40 MG/0.4 ML SYRINGE SC SCH (09:00)
[2022-02-17 17:32] VITALS: BMI 24.7
[2022-02-17] MEDS ORDERED: Melatonin 3 MG TAB PO PRN (23:53)
[2022-02-18 05:56] LABS: #Eosinphils 0.2 10x3/uL (0.0-0.5); #Monocytes 0.9 10x3/uL (0.0-1.1); #Neutrophils 4.8 10x3/uL (1.5-8.4); %Basophils 0.6 % (0.0-2.0); %Eosinophils 2.6 % (0.0-6.0); %Lymphocytes 14.9 % (18.0-47.0); %Monocytes 12.9 % (0.0-10.0); %Neutrophils 68.7 % (40.0-75.0); Hemoglobin 11.9 g/dL (12.0-15.5); Mean Corpuscular HGB CONC 32.4 g/dL (32.0-36.0); Mean Corpuscular Hemoglobin 31.5 pg (27.0-33.0); Mean Corpuscular Volume 97.1 fl (81.6-98.3); Mean Platelet Volume 10.2 fl (7.4-10.4); Platelet Count 176 10x3/uL (150-450); RBC Distribution Width 14.7 % (11.5-14.5); Red Blood Cell (RBC) Count 3.78 10x6/uL (3.90-5.03)
[2022-02-18 06:02] LABS: Anion Gap 14 mmol/L (10-20); BUN (Urea Nitrogen) 27 mg/dL (9.8-20.1); Calc. Creatinine Clearance 41 mL/min (70-130); Calcium 8.9 mg/dL (7.8-10.44); Carbon Dioxide 27 mmol/L (23-31); Chloride 103 mmol/L (98-107); Estimated GFR 53; Glucose 100 mg/dL (83-110); Sodium 140 mmol/L (136-145)
[2022-02-18] MEDS: Furosemide 40 MG/4 ML VIAL SLOW IVP SCH ×2 (06:20→15:00)
[2022-02-18] MEDS: Apixaban 2.5 MG TAB PO SCH ×3 (08:53→20:48)
[2022-02-18] MEDS: Atenolol 25 MG TAB PO SCH ×2 (09:30→20:48)
[2022-02-18] MEDS: DULoxetine 30 MG CAP PO SCH (09:30)
[2022-02-18] MEDS: Aspirin 81 mg Enteric Coated Tablet PO SCH (09:34)
[2022-02-19 05:32] LABS: #Eosinphils 0.2 10x3/uL (0.0-0.5); #Neutrophils 4.7 10x3/uL (1.5-8.4); %Basophils 0.4 % (0.0-2.0); %Eosinophils 3.1 % (0.0-6.0); %Lymphocytes 12.3 % (18.0-47.0); %Monocytes 14.1 % (0.0-10.0); Hemoglobin 11.8 g/dL (12.0-15.5); Mean Corpuscular HGB CONC 32.4 g/dL (32.0-36.0); Mean Corpuscular Hemoglobin 31.6 pg (27.0-33.0); Mean Corpuscular Volume 97.6 fl (81.6-98.3); Mean Platelet Volume 10.3 fl (7.4-10.4); Platelet Count 174 10x3/uL (150-450); RBC Distribution Width 14.5 % (11.5-14.5); Red Blood Cell (RBC) Count 3.73 10x6/uL (3.90-5.03); White Blood Cell (WBC) Count 6.8 10x3/uL (3.5-10.5)
[2022-02-19 05:47] LABS: Anion Gap 15 mmol/L (10-20); BUN (Urea Nitrogen) 27 mg/dL (9.8-20.1); Calc. Creatinine Clearance 37 mL/min (70-130); Calcium 8.9 mg/dL (7.8-10.44); Carbon Dioxide 26 mmol/L (23-31); Chloride 102 mmol/L (98-107); Estimated GFR 55; Glucose 97 mg/dL (83-110); Magnesium 2.2 mg/dL (1.6-2.6); Potassium 4.2 mmol/L (3.5-5.1); Sodium 139 mmol/L (136-145)
[2022-02-19] MEDS: Furosemide 40 MG/4 ML VIAL SLOW IVP SCH (07:06)
[2022-02-19] MEDS: DULoxetine 30 MG CAP PO SCH (08:50)
[2022-02-19] MEDS: Atenolol 25 MG TAB PO SCH ×2 (08:50→21:01)
[2022-02-19] MEDS: Aspirin 81 mg Enteric Coated Tablet PO SCH (08:51)
[2022-02-19] MEDS: Apixaban 2.5 MG TAB PO SCH ×2 (08:51→21:01)
[2022-02-19] MEDS: Furosemide 40 MG TAB PO SCH (14:44)
[2022-02-20 05:29] LABS: #Eosinphils 0.3 10x3/uL (0.0-0.5); #Monocytes 0.9 10x3/uL (0.0-1.1); #Neutrophils 4.8 10x3/uL (1.5-8.4); %Basophils 0.4 % (0.0-2.0); %Eosinophils 3.6 % (0.0-6.0); %Lymphocytes 12.7 % (18.0-47.0); %Monocytes 13.7 % (0.0-10.0); %Neutrophils 69.3 % (40.0-75.0); Hemoglobin 11.9 g/dL (12.0-15.5); Mean Corpuscular HGB CONC 32.2 g/dL (32.0-36.0); Mean Corpuscular Hemoglobin 31.2 pg (27.0-33.0); Mean Corpuscular Volume 97.1 fl (81.6-98.3); Platelet Count 186 10x3/uL (150-450); RBC Distribution Width 14.4 % (11.5-14.5); Red Blood Cell (RBC) Count 3.81 10x6/uL (3.90-5.03); White Blood Cell (WBC) Count 6.9 10x3/uL (3.5-10.5)
[2022-02-20 05:39] LABS: Anion Gap 15 mmol/L (10-20); BUN (Urea Nitrogen) 27 mg/dL (9.8-20.1); Calc. Creatinine Clearance 37 mL/min (70-130); Carbon Dioxide 28 mmol/L (23-31); Chloride 101 mmol/L (98-107); Estimated GFR 55; Glucose 97 mg/dL (83-110); Magnesium 2.2 mg/dL (1.6-2.6); Potassium 4.2 mmol/L (3.5-5.1); Sodium 140 mmol/L (136-145)
[2022-02-20] MEDS: Atenolol 25 MG TAB PO SCH ×2 (08:50→21:02)
[2022-02-20] MEDS: Apixaban 2.5 MG TAB PO SCH ×2 (08:52→21:02)
[2022-02-20] MEDS: Furosemide 40 MG TAB PO SCH ×2 (08:52→15:24)
[2022-02-20] MEDS: DULoxetine 30 MG CAP PO SCH (08:52)
[2022-02-20] MEDS: Aspirin 81 mg Enteric Coated Tablet PO SCH (08:52)
[2022-02-21 04:47] LABS: #Eosinphils 0.2 10x3/uL (0.0-0.5); #Monocytes 0.8 10x3/uL (0.0-1.1); #Neutrophils 3.9 10x3/uL (1.5-8.4); %Basophils 0.5 % (0.0-2.0); %Eosinophils 4.1 % (0.0-6.0); %Lymphocytes 15.2 % (18.0-47.0); %Monocytes 13.3 % (0.0-10.0); %Neutrophils 66.6 % (40.0-75.0); Hemoglobin 11.7 g/dL (12.0-15.5); Mean Corpuscular HGB CONC 32.5 g/dL (32.0-36.0); Mean Corpuscular Hemoglobin 31.5 pg (27.0-33.0); Mean Platelet Volume 9.8 fl (7.4-10.4); Platelet Count 184 10x3/uL (150-450); RBC Distribution Width 14.3 % (11.5-14.5); Red Blood Cell (RBC) Count 3.71 10x6/uL (3.90-5.03); White Blood Cell (WBC) Count 5.8 10x3/uL (3.5-10.5)
[2022-02-21 04:57] LABS: Anion Gap 12 mmol/L (10-20); BUN (Urea Nitrogen) 26 mg/dL (9.8-20.1); Calc. Creatinine Clearance 41 mL/min (70-130); Calcium 8.9 mg/dL (7.8-10.44); Carbon Dioxide 29 mmol/L (23-31); Chloride 101 mmol/L (98-107); Estimated GFR 63; Glucose 97 mg/dL (83-110); Magnesium 2.1 mg/dL (1.6-2.6); Potassium 3.8 mmol/L (3.5-5.1); Sodium 138 mmol/L (136-145)
[2022-02-21] MEDS: DULoxetine 30 MG CAP PO SCH (09:08)
[2022-02-21] MEDS: Furosemide 40 MG TAB PO SCH ×2 (09:09→13:33)
[2022-02-21] MEDS: Atenolol 25 MG TAB PO SCH ×2 (09:09→20:41)
[2022-02-21] MEDS: Apixaban 2.5 MG TAB PO SCH ×2 (09:09→20:42)
[2022-02-21] MEDS: Aspirin 81 mg Enteric Coated Tablet PO SCH (09:09)
[2022-02-22] MEDS: Apixaban 2.5 MG TAB PO SCH (09:50)
[2022-02-22] MEDS: Furosemide 40 MG TAB PO SCH ×2 (09:50→14:58)
[2022-02-22] MEDS: Aspirin 81 mg Enteric Coated Tablet PO SCH (09:50)
[2022-02-22] MEDS: Atenolol 25 MG TAB PO SCH (09:51)
[2022-02-22] MEDS: DULoxetine 30 MG CAP PO SCH (09:53)
[2022-02-22 15:23] VITALS: BP 117/58; TEMP 99
== END 2022-02-22 17:05 | disposition home health service (06) | DRG 291 ==
LOC: CSHERS 10:21 → CSHERHOLD 15:06 → CSHTELE 02-17 11:52
PROVIDERS: ADMIT Internal Medicine; ATTEND Internal Medicine
DX: I13.0 Hypertensive heart and chronic kidney disease with heart failure and stage 1 through stage 4 chronic kidney disease, or unspecified chronic kidney disease (principal); I50.43 Acute on chronic combined systolic (congestive) and diastolic (congestive) heart failure; J96.01 Acute respiratory failure with hypoxia; N17.9 Acute kidney failure, unspecified; N18.30 Chronic kidney disease, stage 3 unspecified; M19.90 Unspecified osteoarthritis, unspecified site; E78.5 Hyperlipidemia, unspecified; I45.10 Unspecified right bundle-branch block; Z20.822 Contact with and (suspected) exposure to COVID-19; I73.9 Peripheral vascular disease, unspecified; I48.0 Paroxysmal atrial fibrillation; I25.10 Atherosclerotic heart disease of native coronary artery without angina pectoris; Z95.5 Presence of coronary angioplasty implant and graft; Z95.1 Presence of aortocoronary bypass graft; Z90.49 Acquired absence of other specified parts of digestive tract; Z90.710 Acquired absence of both cervix and uterus; Z98.890 Other specified postprocedural states; Z88.8 Allergy status to other drugs, medicaments and biological substances; Z79.01 Long term (current) use of anticoagulants; Z79.899 Other long term (current) drug therapy; Z79.82 Long term (current) use of aspirin; Z95.2 Presence of prosthetic heart valve; Z85.3 Personal history of malignant neoplasm of breast
CPT/HCPCS: 36415; 71045; 80048; 80053; 82553; 83735; 83880; 84100; 84484; 85025; 93005; 94760; 96374; J1940; U0002

== ENCOUNTER 2022-06-23 21:37 | Emergency (ER) | payer MEDICARE, BC ==
[2022-06-23 22:30] LABS: #Eosinphils 0.2 10x3/uL (0.0-0.5); #Monocytes 0.9 10x3/uL (0.0-1.1); #Neutrophils 5.9 10x3/uL (1.5-8.4); %Basophils 0.5 % (0.0-2.0); %Eosinophils 2.5 % (0.0-6.0); %Lymphocytes 12.3 % (18.0-47.0); %Monocytes 11.4 % (0.0-10.0); %Neutrophils 72.6 % (40.0-75.0); Hemoglobin 12.4 g/dL (12.0-15.5); Mean Corpuscular HGB CONC 32.9 g/dL (32.0-36.0); Mean Corpuscular Hemoglobin 30.8 pg (27.0-33.0); Mean Corpuscular Volume 93.5 fl (81.6-98.3); Mean Platelet Volume 9.7 fl (7.4-10.4); Platelet Count 229 10x3/uL (150-450); RBC Distribution Width 16.3 % (11.5-14.5); Red Blood Cell (RBC) Count 4.03 10x6/uL (3.90-5.03); White Blood Cell (WBC) Count 8.1 10x3/uL (3.5-10.5)
[2022-06-23 22:45] LABS: PTT 26.8 sec (22.0-33.0)
[2022-06-23 22:48] LABS: ALT (SGPT) 7 U/L (8-55); AST (SGOT) 17 U/L (5-34); Albumin 3.4 g/dL (3.4-4.8); Alkaline Phosphatase 118 U/L (40-110); Anion Gap 14 mmol/L (10-20); BUN (Urea Nitrogen) 42 mg/dL (9.8-20.1); Bilirubin, Total 0.3 mg/dL (0.2-1.2); Calc. Creatinine Clearance 0 mL/min (70-130); Calcium 9.2 mg/dL (7.8-10.44); Carbon Dioxide 25 mmol/L (23-31); Chloride 103 mmol/L (98-107); Estimated GFR 34; Globulin 3.8 g/dL (2.4-3.5); Glucose 107 mg/dL (83-110); Magnesium 2.6 mg/dL (1.6-2.6); Potassium 4.9 mmol/L (3.5-5.1); Protein, Total 7.2 g/dL (5.8-8.1); Sodium 137 mmol/L (136-145)
== END 2022-06-24 01:35 | disposition home or self-care (01) ==
LOC: CSHERS 21:37
DX: I73.9 Peripheral vascular disease, unspecified (principal); I13.0 Hypertensive heart and chronic kidney disease with heart failure and stage 1 through stage 4 chronic kidney disease, or unspecified chronic kidney disease; N18.30 Chronic kidney disease, stage 3 unspecified; I50.20 Unspecified systolic (congestive) heart failure; D63.1 Anemia in chronic kidney disease; I48.91 Unspecified atrial fibrillation; Z79.01 Long term (current) use of anticoagulants; Z79.899 Other long term (current) drug therapy
CPT/HCPCS: 80053; 83735; 85025; 85610; 85730; 93923; 93970